=== PATIENT | female | born 1990 | race Caucasian/White ===

== ENCOUNTER → 2025-06-28 | Outpatient (CLI) | payer SELFPAY ==
--- NOTE | 2025-06-28 12:25 | US_ITS ---
EXAM: Right axillary ultrasound. CLINICAL HISTORY: Right axillary palpable abnormality. The patient is 8 weeks . COMPARISON: None TECHNIQUE: Sonographic imaging of the right axilla was performed. FINDINGS: The palpable abnormality corresponds to a complex cystic structure measuring 1.2 cm 1.1 cm 0.8 cm. This may represent an inflammatory process. Aspiration recommended. US/Axilla - Right IMPRESSION: The palpable abnormality corresponds to a complex cystic structure measuring 1. 2 cm 1.1 cm 0.8 cm. Aspiration recommended. Reading Location: [id number]
--- NOTE | 2025-06-28 12:25 | US_ITS ---
EXAM: Right axillary ultrasound. CLINICAL HISTORY: Right axillary palpable abnormality. The patient is 8 weeks . COMPARISON: None TECHNIQUE: Sonographic imaging of the right axilla was performed. FINDINGS: The palpable abnormality corresponds to a complex cystic structure measuring 1.2 cm 1.1 cm 0.8 cm. This may represent an inflammatory process. Aspiration recommended. US/Axilla - Right IMPRESSION: The palpable abnormality corresponds to a complex cystic structure measuring 1. 2 cm 1.1 cm 0.8 cm. Aspiration recommended. Reading Location: [id number]
== END | disposition home or self-care (01) ==
LOC: US 12:23
PROVIDERS: PCP Family Medicine; Referring Provider Family Medicine; Visit Provider Family Medicine
DX: O92.29 Other disorders of breast associated with pregnancy and the puerperium (principal)
CPT/HCPCS: 76882

== ENCOUNTER → 2025-07-11 | Outpatient (CLI) | payer SELFPAY ==
--- NOTE | 2025-07-11 14:40 | AXNB_PTH ---
PATIENT: CAROLINE FERRARI LOC: [facility] U#:[id number] AGE/SX: 34/F ROOM: RE07/11/[address]: Dr. Kellie Restrepo MD : 1990 BED: DIS: 07/11/2025 SPEC #: [id number] RECD: 07/11/25 15:48 STATUS: MI REQ #: [id number] SUSU: 07/11/25 14:[address]: Kellie Restrepo DEPT: SURGICAL PATHOLOGY RECD BY: Ken Bernal ENTERED: 07/12/25 11:36 SP TYPE: AX NODE BX OTHR DR: Dr. Eduardo Trujillo, DO Tissues: A - Axillary lymph node, NOS Procedures: Immunohistochemical Stains Surgery Specimen Level IV IHC Stain ADDITIONAL HEADER OPERATION: Biopsy structure right axillary PRE-OP DIAGNOSIS: Right axillary structure TISSUE SUBMITTED: A- Right axillary cystic structure MICROSCOPIC DIAGNOSIS A. Right axilla, "cystic structure", core biopsy: - Benign breast parenchyma suggestive of breast axillary tail. - IHC for CK5/6 and p40 support the histologic impression. MICROSCOPIC DESCRIPTION Slides are reviewed. All matched controls reacted appropriately. These tests were developed and their performance characteristics determined by [facility]. They may not have been cleared or approved by the [place]. Food and Drug Administration. The FDA has determined that such clearance or approval is not necessary. The above immunohistochemical markers and/or special stains have been reviewed by the Pathologist. GROSS DESCRIPTION A. Received in formalin labeled with the patient's name and date of . Designated as " R axillary structure" are 2 rome-white to yellow tissue cores, 1.2 cm and 1.5 cm in length by 0.1 cm in diameter. Entirely submitted in 1 cassette. [place] 07/12/2025 CPT:58403,41973,04683
--- OUTSIDE RECORDS SUMMARY | 2025-07-11 18:09 | XMS RPT_ITS | CCD ---
Author Organization [facility] Care Team Providers Care [employer] Name Role Phone Eduardo Trujillo Referring Unavailable Eduardo Trujillo Attending Unavailable Eduardo Trujillo Primary Care Unavailable Problems Problem Classification Problem Date Documented Da te Episodic/Chronic Other complications of ; puerperium affecting management of mother (1 source) Other disorders of breast associated with and the puerperium; Translations: [Other disorders of breast associated with and the puerperium] Onset: 07-05-2025 Episodic Results Test Name Value Interpretation Reference Range [facility] Axilla - Righton 06-28-2025 Axilla - Right [facility] [address] [place] [id number] Axilla - Right MR#: [id number] Acct: [id number] Name: CAROLINE FERRARI Rep #: [id number] : 1990 F 34 From: Fernando lynn MD PCP: Dr. Eduardo Trujillo MD Status: [facility] Study: Axilla - Right Date of Exam: 06/28/25 Exam# [id number] Ordering Dr: Eduardo Trujillo DO EXAM: Right axillary ultrasound. CLINICAL HISTORY: Right axillary palpable abnormality. The patient is 8 weeks . COMPARISON: None TECHNIQUE: Sonographic imaging of the right axilla was performed. FINDINGS: The palpable abnormality corresponds to a complex cystic structure measuring 1.2 cm 1.1 cm 0.8 cm. This may represent an inflammatory process. Aspiration recommended. US/Axilla - Right IMPRESSION: The palpable abnormality corresponds to a complex cystic structure measuring 1.2 cm 1.1 cm 0.8 cm. Aspiration recommended. Reading Location: [id number] CC: Dr. Eduardo Trujillo MD Type Copy Examiner: Signed Normal [facility] Encounters Encounter Date Encounter Type Care Provider Facility Start: 06-28-2025 End: 06-28-2025 ambulatory Eduardo Trujillo Facility:[facility] Payers Date Payer Category Payer Self-pay Unknown [id number] Summary Purpose Family History No Family History Records Found Advance Directives No Advanced Directives Records Found Additional Source Comments INFORMATION SOURCE (unrecogn ized section and content) DATE CREATED AUTHOR 07/06/2025 [facility] FOR RECORDS PERTAINING TO PATIENTS WHO ARE OR HAVE BEEN ENROLLED IN A CHEMICAL DEPENDENCY/SUBSTANCEABUSE PROGRAM, SOME INFORMATION MAY BE OMITTED. This clinical summary was aggregated from multiple sources. Caution should be exercised in using it in the provision of clinical care. This summary normalizes information from multiple sources, and as a consequence, information in this document may materially change the coding, format and clinical context of patient data. In addition, data may be omitted in some cases. CLINICAL DECISIONS SHOULD BE BASED ON THE PRIMARY CLINICAL RECORDS. [employer] provides no warranty or guarantee of the accuracy or completeness of information in this document.
== END | disposition home or self-care (01) ==
LOC: LABSPEC 16:11
PROVIDERS: PCP Family Medicine; Referring Provider Surgery; Visit Provider Surgery
DX: D36.0 Benign neoplasm of lymph nodes (principal)
CPT/HCPCS: 88305; 88341; 88342